=== PATIENT | male | born 1960 | race Caucasian/White ===

== ENCOUNTER 2017-03-23 12:52 | Day surgery (SDC) | payer OTHER ==
[~2017-03-23] VITALS: Ht 170.2 cm; Wt 89.7 kg
[2017-03-23 13:23] VITALS: Ht 170.2 cm; Wt 89.7 kg
[2017-03-23] MEDS ORDERED: LOSARTAN PO (13:35)
[2017-03-23] MEDS ORDERED: CRESTOR PO (13:35)
[2017-03-23] MEDS ORDERED: ASPIRIN PO (13:35)
[2017-03-23 14:49] VITALS: BP 118/67; PULSE 76; RESP 24
[2017-03-23 15:45] VITALS: BP 119/64; PULSE 72; RESP 14
[2017-03-23] MEDS ORDERED: FENTAnyl 50 MCG/ML VIAL ONE (16:46)
[2017-03-23] MEDS ORDERED: MIDAZOLAM 1 MG/ML 2 ML INJ ONE ×2 (16:46)
--- NOTE | 2017-03-27 09:30 | GILP ---
DATE OF PROCEDURE: PREOPERATIVE DIAGNOSIS: Screening colonoscopy. POSTOPERATIVE DIAGNOSIS: One 3 mm polyp removed from ascending colon. DESCRIPTION OF PROCEDURE: The patient was put in left lateral decubitus. After obtaining informed consent, he was given 3 mg IV Versed and 75 mcg of fentanyl. Advanced very carefully, an Olympus video colonoscope all the way to cecum. Appendiceal opening and ileocecal valve identified and at 3 mm polyp was found in the ascending colon. It was sessile. It was removed completely by cold Jumbo biopsy forceps, sent to Pathology. Multiple biopsy actually was done on this. Complete removal was accomplished. Rest of the colon, transverse colon, descending colon, sigmoid colon, normal. Some grade 1 internal hemorrhoids. Otherwise unremarkable in the rectum. PLAN: Will be to await for biopsy report and follow up as outpatient and he will come back for EGD. Meanwhile, I will recommend him to have colonoscopy in 3-5 years depending on the biopsy report. Dictated By: Stanislav Bradley MD /[email or web address]/[email or web address] /Document#: [id number] CC: Stanislav Bradley MD; Dr. Chucho Looney;*EndCC*
== END 2017-03-23 17:20 | disposition home or self-care (01) ==
LOC: GIL 12:52
PROVIDERS: ATTEND Internal Medicine
DX: Z12.11 Encounter for screening for malignant neoplasm of colon (principal); D12.2 Benign neoplasm of ascending colon
CPT/HCPCS: 45380; 88305; J2250; J3010; Z7610

== ENCOUNTER → 2017-11-15 | Outpatient (CLI) | END | disposition home or self-care (01) ==

== ENCOUNTER → 2017-12-10 | Outpatient (CLI) | END | disposition home or self-care (01) ==

== ENCOUNTER → 2018-06-10 | Outpatient (CLI) | END | disposition home or self-care (01) ==

== ENCOUNTER → 2018-06-20 | Outpatient (CLI) | END | disposition home or self-care (01) ==